=== PATIENT | female | born 2000 | race Two or more races ===

== ENCOUNTER 2020-08-05 14:56 | Emergency (ER) | payer OTHER ==
[~2020-08-05] VITALS: Ht 160 cm; Wt 52.2 kg
[2020-08-05 20:28] VITALS: BP 124/74
== END 2020-08-05 20:51 | disposition home or self-care (01) ==
LOC: ER 14:56
DX: S52.121A Displaced fracture of head of right radius, initial encounter for closed fracture (principal); M25.421 Effusion, right elbow; V00.131A Fall from skateboard, initial encounter; Y93.51 Activity, roller skating (inline) and skateboarding; Y92.89 Other specified places as the place of occurrence of the external cause; Y99.8 Other external cause status
CPT/HCPCS: 29105; 73080